=== PATIENT | female | born 1950 | race Two or more races ===

== ENCOUNTER 2020-07-21 16:32 | Emergency (ER) | payer MEDICAID ==
[~2020-07-21] VITALS: Ht 149.9 cm; Wt 241.0 kg
[2020-07-21 18:37] LABS: BASOPHILS # (AUTO) 0.1 X10'3 (0-0.2); EOSINOPHILS # (AUTO) 0.5 X10'3 (0-0.9); EOSINOPHILS % (AUTO) 4.6 % (0-6); HEMATOCRIT 46.9 % (35.0-45.0); HEMOGLOBIN 15.5 g/dl (12.0-16.0); LYMPHOCYTES # (AUTO) 2.2 X10'3 (1.1-4.8); LYMPHOCYTES % (AUTO) 18.5 % (21-51); MEAN CORPUSCULAR HEMOGLOBIN 30.7 PG (27.0-31.0); MEAN PLATELET VOLUME 8.7 FL (7.4-10.4); MONOCYTES % (AUTO) 8.9 % (2-12); NEUTROPHILS # (AUTO) 7.9 X10'3 (1.8-7.7); PLATELET COUNT 265 X10'3 (140-440); RED BLOOD COUNT 5.04 X10'6 (4.20-5.60); RED CELL DISTRIBUTION WIDTH 14.2 % (11.5-14.5); WHITE BLOOD COUNT 11.8 X10'3 (4.5-11.0)
[2020-07-21 18:56] LABS: ALANINE AMINOTRANSFERASE 17 U/L (12-78); ALBUMIN 3.4 G/DL (3.4-5.0); ALBUMIN/GLOBULIN RATIO 0.8 (1.1-1.5); ALKALINE PHOSPHATASE 130 IU/L (46-116); ANION GAP 4 (8-16); ASPARTATE AMINO TRANSFERASE 19 U/L (10-37); BILIRUBIN,TOTAL 0.4 MG/DL (0.1-1.0); BLOOD UREA NITROGEN 14 MG/DL (7-18); BUN/CREATININE RATIO 19.2 (6.6-38.0); CALCIUM 9.1 MG/DL (8.5-10.1); CHLORIDE 102 MMOL/L (99-107); CREATININE 0.73 MG/DL (0.40-0.90); GLUCOSE 97 MG/DL (70-104); POTASSIUM 3.8 MMOL/L (3.5-5.1); SODIUM 137 MMOL/L (135-145); TOTAL CARBON DIOXIDE 31.1 MMOL/L (24-32); TOTAL PROTEIN 7.7 G/DL (6.4-8.2); eGFR 79 ML/MIN
[2020-07-21] MEDS ORDERED: EFF37.5XRC PO (18:57)
[2020-07-21] MEDS ORDERED: HCTZ25T PO (18:58)
[2020-07-21] MEDS ORDERED: ACET-1008 PO (18:59)
[2020-07-21] MEDS ORDERED: ENAL10TA78 PO (18:59)
[2020-07-21] MEDS ORDERED: MECL-159 PO (19:00)
[2020-07-21] MEDS ORDERED: PROP40TA72 PO (19:01)
--- NOTE | 2020-07-21 19:01 | NUR ---
Says feels like normal vertigo but that her Meclizine isn't working for very long after she takes it. Recently had dosage of Vasotec reduced from 20 mg to 10 mg.
[2020-07-21] MEDS ORDERED: diazepam 5mg tablet PO ONE (21:30)
[2020-07-21 22:04] VITALS: BP 173/89
== END 2020-07-21 22:05 | disposition home or self-care (01) ==
LOC: ER 16:34
DX: R42 Dizziness and giddiness (principal); M54.2 Cervicalgia; M25.561 Pain in right knee; Z79.899 Other long term (current) drug therapy
CPT/HCPCS: 36415; 70450; 71045; 72125; 73564; 73590; 80053; 83880; 84484; 85025; 93005; 99285